=== PATIENT | female | born 1970 | race Caucasian/White ===

== ENCOUNTER 2017-08-20 19:22 | Emergency (ER) | payer MEDICARE, MEDICAID ==
[~2017-08-20] VITALS: Ht 162.6 cm; Wt 84.8 kg
[~2017-08-20 19:22] MED LIST: CLONAZEPAM 1 MG1 M1 PO; HUMIRA40 MG/0.1 SQ; LIDOCAINE; NORCO 5-325 TA1 EACH PO; PENTASA500 MG; PERCOCET 5-3251 EACH PO; PRILOSEC20 MG PO; XANAX 0.5 MG0.5 M1
[2017-08-20 20:04] LABS: ABSOLUTE BASOPHILS 0.1 thou/uL (0.0-0.2); ABSOLUTE EOSINOPHILS 0.2 thou/uL (0.0-0.7); ABSOLUTE LYMPHOCYTES 2.1 thou/uL (0.8-5.3); ABSOLUTE NEUTROPHILS 8.8 thou/uL (1.6-8.1); BASOPHILS 0.7 %; HEMATOCRIT 36.7 % (37.0-47.0); HEMOGLOBIN 12.4 gm/dL (12.0-15.0); LYMPHOCYTES 17.4 %; MCH 29.2 pg (26.0-34.0); MCHC 33.7 g/dL (28.0-37.0); MCV 86.7 fL (80.0-100.0); MONOCYTES 8.2 %; MPV 6.6 fl. (7.2-11.1); NUCLEATED RBCS 0 /100WBC; PLATELET COUNT* 353 thou/uL (150-400); POLYS 71.7 %; RBC 4.23 mil/uL (4.20-5.00); RDW-CV 14.2 % (10.5-14.5); WBC 12.3 thou/uL (4.0-11.0)
[2017-08-20 20:18] LABS: ALBUMIN 3.3 g/dL (3.4-5.0); CALCIUM 8.8 mg/dL (8.5-10.1); CREATININE 1.2 mg/dL (0.6-1.3); TOTAL BILIRUBIN 0.7 mg/dL (<0.1-1.0); TOTAL PROTEIN 7.2 g/dL (6.4-8.2)
[2017-08-20] MEDS ORDERED: HYDROCODONE-AP1 EAC6 PO ×2 (21:11→21:14)
[2017-08-20] MEDS ORDERED: PRILOSEC 20 MG20 MG PO (21:22)
[2017-08-20] MEDS ORDERED: DIFLUCAN200 MG PO (21:22)
[2017-08-20 21:27] LABS: URINE BILIRUBIN NEGATIVE (Negative); URINE BLOOD 1+ (Negative); URINE CLARITY CLEAR; URINE COLOR YELLOW; URINE GLUCOSE-RANDOM NEGATIVE (Negative); URINE KETONES NEGATIVE (Negative); URINE LEUKOCYTES-REFLEX 2+ (Negative); URINE NITRITE-REFLEX NEGATIVE (Negative); URINE PROTEIN NEGATIVE (Negative); URINE SPECIFIC GRAVITY 1.015 (1.005-1.030); URINE UROBILINOGEN 0.2 E.U./dl (0.2-1.0)
[2017-08-20 21:41] LABS: BACTERIA-REFLEX >30 Many /HPF (None Seen); HYALINE CASTS 0-3 Few /LPF (None Seen); MUCUS 4-6 Moderate strn/LPF (None Seen); RENAL EPITHELIAL CELLS 0-3 Few /LPF (None Seen); SQUAMOUS 4-10 Moderate /LPF (0-3); URINE WBC-REFLEX >25 Many /HPF (0-5); WBC CLUMPS Moderate (None Seen)
[2017-08-20 21:42] LABS: CRYSTALS None Seen /LPF (None Seen); FINE GRANULAR CASTS 0-3 Few /LPF (None Seen)
[2017-08-20 22:00] VITALS: BP 117/86
[2017-08-21] MEDS ORDERED: CIPRO500 MG PO (10:34)
== END 2017-08-20 22:00 | disposition home or self-care (01) ==
LOC: M.ERS 19:22
PROVIDERS: Physician Assistant
DX: N39.0 Urinary tract infection, site not specified (principal); E86.0 Dehydration; Z86.73 Personal history of transient ischemic attack (TIA), and cerebral infarction without residual deficits; Z98.890 Other specified postprocedural states; Z88.4 Allergy status to anesthetic agent; Z88.5 Allergy status to narcotic agent; Z88.8 Allergy status to other drugs, medicaments and biological substances

== ENCOUNTER 2017-08-23 13:46 | Emergency (ER) | payer MEDICARE, MEDICAID ==
[~2017-08-23] VITALS: Ht 157.5 cm; Wt 86.2 kg
[~2017-08-23 13:46] MED LIST changes: +CIPRO500 MG PO; +DIFLUCAN200 MG PO; +HYDROCODONE-AP1 EAC6 PO; +PRILOSEC 20 MG20 MG PO
[2017-08-23 14:41] LABS: INFLUENZA B ANTIGEN None Detected (None Detect)
[2017-08-23] MEDS ORDERED: ACETAMINOPHEN500 M1 PO (15:27)
[2017-08-23] MEDS ORDERED: VENTOLIN HFA 1818 GM INH (15:27)
[2017-08-23] MEDS ORDERED: OSELB75 PO (15:27)
[2017-08-23 15:36] VITALS: BP 132/75
== END 2017-08-23 15:36 | disposition home or self-care (01) ==
LOC: M.ERS 13:46
PROVIDERS: Physician Assistant
DX: J09.X2 Influenza due to identified novel influenza A virus with other respiratory manifestations (principal); K50.90 Crohn's disease, unspecified, without complications; Z86.73 Personal history of transient ischemic attack (TIA), and cerebral infarction without residual deficits; Z98.890 Other specified postprocedural states; Z88.4 Allergy status to anesthetic agent; Z88.5 Allergy status to narcotic agent; Z88.8 Allergy status to other drugs, medicaments and biological substances

== ENCOUNTER → 2017-10-02 | Outpatient (CLI) | payer MEDICARE, MEDICAID ==
[~2017-10-02] MED LIST changes: +ACETAMINOPHEN500 M1 PO; +BACTRIM DS TAB1 EACH PO; +DIFLUCAN150 MG PO; +HYDROXYZINE HCL25 M1 PO; +NYSTATIN-TRIAMC15 GM TOP; +OSELB75 PO; +OXYCODONE HCL 55 MG PO; +VENTOLIN HFA 1818 GM INH
== END ==
LOC: M.NUC 07:18
DX: R11.2 Nausea with vomiting, unspecified (principal); R10.9 Unspecified abdominal pain; R68.81 Early satiety

== ENCOUNTER 2018-02-06 00:38 | Emergency (ER) | payer MEDICARE, MEDICAID ==
[~2018-02-06] VITALS: Ht 162.6 cm; Wt 79.4 kg
[~2018-02-06 00:38] MED LIST changes: -BACTRIM DS TAB1 EACH PO; -DIFLUCAN150 MG PO; -HYDROXYZINE HCL25 M1 PO; -NYSTATIN-TRIAMC15 GM TOP; -OXYCODONE HCL 55 MG PO
[2018-02-06] MEDS ORDERED: HYDROXYZINE HCL25 M1 PO (02:00)
[2018-02-06 02:23] LABS: URINE CLARITY CLEAR; URINE COLOR YELLOW
[2018-02-06 02:24] LABS: URINE BILIRUBIN NEGATIVE (Negative); URINE BLOOD 1+ (Negative); URINE GLUCOSE-RANDOM NEGATIVE (Negative); URINE KETONES NEGATIVE (Negative); URINE LEUKOCYTES-REFLEX 2+ (Negative); URINE NITRITE-REFLEX NEGATIVE (Negative); URINE PROTEIN 1+ (Negative); URINE UROBILINOGEN 0.2 E.U./dl (0.2-1.0)
[2018-02-06 02:27] LABS: SQUAMOUS 4-10 Moderate /LPF (0-3)
[2018-02-06 02:28] LABS: CASTS None Seen /LPF (None Seen); URINE WBC-REFLEX 6-15 Few /HPF (0-5)
[2018-02-06 02:29] LABS: CALCIUM OXALATE 0-3 Few /LPF (None Seen); URINE RBC 3-10 Few /HPF (0-2)
[2018-02-06] MEDS ORDERED: DIFLUCAN150 MG PO (02:45)
[2018-02-06] MEDS ORDERED: BACTRIM DS TAB1 EACH PO (02:45)
[2018-02-06] MEDS ORDERED: NYSTATIN-TRIAMC15 GM TOP (02:46)
[2018-02-06] MEDS ORDERED: OXYCODONE HCL 55 MG PO (02:48)
[2018-02-06 03:33] VITALS: BP 101/74
== END 2018-02-06 03:37 | disposition home or self-care (01) ==
LOC: M.ERS 00:38
PROVIDERS: Emergency Medicine
DX: N39.0 Urinary tract infection, site not specified (principal); N76.0 Acute vaginitis; Z96.641 Presence of right artificial hip joint; Z88.6 Allergy status to analgesic agent; Z88.8 Allergy status to other drugs, medicaments and biological substances